=== PATIENT | male | born 1950 | race African-American/Black ===

== ENCOUNTER 2016-11-12 10:34 | Emergency (ER) | payer OTHER ==
[~2016-11-12] VITALS: Ht 172.7 cm; Wt 81.0 kg
[~2016-11-12 10:34] MED LIST: ATORVASTATIN CA40 MG PO; CEPHALEXIN500 MG PO; CLONIDINE0.1 MG PO; COLCHICINE0.6 M2 PO; LISINOPRIL20 MG PO; LORTAB 10-325 M1 TAB PO; LORTAB 7.57.5 MG PO; MOTRIN800 MG PO; NAPROSYN500 MG PO; PERCOCET 5/325M1 TAB PO; ULTRAM50 M1 PO
[2016-11-12] MEDS ORDERED: CARVEDILOL25 MG PO (10:43)
[2016-11-12] MEDS ORDERED: BRILINTA90 MG PO (10:45)
[2016-11-12 11:30] LABS: HEMATOCRIT 30.2 % (39.0-50.0); HEMOGLOBIN 9.3 g/dl (14.0-18.0); MEAN CELL VOLUME 100.3 fL CALC (80.0-100.0); MEAN CORPUSCULAR HGB 30.9 pG CALC (26.0-32.0); MEAN CORPUSCULAR HGB CONC 30.8 g/L CALC (32.0-36.0); NEUT# 3.58 thou/uL (1.82-7.42); RED BLOOD COUNT 3.01 mill/uL (4.70-6.10); RED CELL DISTRI WIDTH 13.3 % (11.5-15.5)
[2016-11-12 11:44] LABS: ALBUMIN 4.2 g/dL (3.2-5.0); ALKALINE PHOSPHATASE 72 u/l (38-126); ANION GAP 14 (6-22 (CALC)); BILIRUBIN, TOTAL 0.4 mg/dL (0.0-1.4); BUN 28 mg/dL (8-23); BUN/CREATININE RATIO 22 (12-20 (CALC)); CALCIUM 9.9 mg/dL (8.4-10.2); CARBON DIOXIDE 27 mmol/l (22-30); CHLORIDE 104 mmol/l (95-108); CREATININE 1.3 mg/dL (0.7-1.3); GFR 56 ML/MIN (>=60 (CALC)); GFR FOR AFR.AMER. > 60 ML/MIN (>=60 (CALC)); GLUCOSE 111 mg/dL (82-115); SGOT/AST 34 u/l (19-48); SGPT/ALT 44 u/l (11-66); SODIUM 140 mmol/l (137-146); TOTAL PROTEIN 7.8 g/dL (6.3-8.2)
[2016-11-12 11:45] LABS: POTASSIUM 5.4 mmol/l (3.5-5.1)
[2016-11-12] MEDS ORDERED: INDOCIN25 MG PO (12:08)
[2016-11-12] MEDS ORDERED: PERCOCET 5/325M1 TAB PO (12:08)
[2016-11-12 12:15] VITALS: BP 129/74
== END 2016-11-12 12:15 | disposition home or self-care (01) | DRG 554 ==
LOC: ED 10:34
PROVIDERS: Emergency Medicine
DX: M10.071 Idiopathic gout, right ankle and foot (principal); M25.571 Pain in right ankle and joints of right foot

== ENCOUNTER 2016-11-27 10:01 | Emergency (ER) | payer OTHER ==
[~2016-11-27] VITALS: Ht 172.7 cm; Wt 85.0 kg
[~2016-11-27 10:01] MED LIST changes: +BRILINTA90 MG PO; +CARVEDILOL25 MG PO; +INDOCIN25 MG PO
[2016-11-27] MEDS ORDERED: LASIX 20 MG TAB20 MG PO (10:12)
[2016-11-27] MEDS ORDERED: ULTRAM50 M1 PO (12:40)
[2016-11-27 12:54] VITALS: BP 132/78
== END 2016-11-27 12:54 | disposition home or self-care (01) | DRG 554 ==
LOC: ED 10:01
DX: M17.11 Unilateral primary osteoarthritis, right knee (principal); I10 Essential (primary) hypertension; M76.9 Unspecified enthesopathy, lower limb, excluding foot; I25.2 Old myocardial infarction; M10.9 Gout, unspecified; Z95.810 Presence of automatic (implantable) cardiac defibrillator

== ENCOUNTER 2017-03-23 18:05 | Emergency (ER) | payer OTHER ==
[~2017-03-23] VITALS: Ht 172.7 cm; Wt 83.0 kg
[~2017-03-23 18:05] MED LIST changes: +LASIX 20 MG TAB20 MG PO
[2017-03-23] MEDS ORDERED: PERCOCET 5/325M1 TAB PO (20:18)
[2017-03-23] MEDS ORDERED: ORPHENADRINE C100 M1 PO (20:18)
[2017-03-23 20:50] VITALS: BP 147/70
== END 2017-03-23 20:49 | disposition home or self-care (01) | DRG 552 ==
LOC: ED 18:05
DX: S16.1XXA Strain of muscle, fascia and tendon at neck level, initial encounter (principal); I10 Essential (primary) hypertension; M47.812 Spondylosis without myelopathy or radiculopathy, cervical region; I25.2 Old myocardial infarction; M10.9 Gout, unspecified; V43.52XA Car driver injured in collision with other type car in traffic accident, initial encounter

== ENCOUNTER 2017-07-08 07:00 | Emergency (ER) | payer OTHER ==
[~2017-07-08] VITALS: Ht 172.7 cm; Wt 100.0 kg
[~2017-07-08 07:00] MED LIST changes: +ORPHENADRINE C100 M1 PO
[2017-07-08] MEDS ORDERED: BACTRIM DS1 TAB PO (08:43)
[2017-07-08 09:17] LABS: HEMATOCRIT 30.1 % (39.0-50.0); HEMOGLOBIN 9.3 g/dl (14.0-18.0); IMMATURE GRANULOCYTES 0.3 % (0.0-1.0); MEAN CORPUSCULAR HGB 30.9 pG CALC (26.0-32.0); MEAN CORPUSCULAR HGB CONC 30.9 g/L CALC (32.0-36.0); NEUT# 4.83 thou/uL (1.82-7.42); RED BLOOD COUNT 3.01 mill/uL (4.70-6.10)
[2017-07-08] MEDS ORDERED: NORCO1 TA1 PO (09:22)
[2017-07-08 09:24] VITALS: BP 141/75
[2017-07-08 09:32] LABS: ALBUMIN 4.5 g/dL (3.2-5.0); BILIRUBIN, TOTAL 0.3 mg/dL (0.0-1.4); CALCIUM 9.8 mg/dL (8.4-10.2); CREATININE 1.6 mg/dL (0.7-1.3); POTASSIUM 5.2 mmol/l (3.5-5.1); TOTAL PROTEIN 7.5 g/dL (6.3-8.2)
== END 2017-07-08 09:30 | disposition home or self-care (01) | DRG 561 ==
LOC: ED 07:00
PROVIDERS: Emergency Medicine
DX: T84.53XA Infection and inflammatory reaction due to internal right knee prosthesis, initial encounter (principal); B96.5 Pseudomonas (aeruginosa) (mallei) (pseudomallei) as the cause of diseases classified elsewhere; M25.561 Pain in right knee; M25.461 Effusion, right knee; Z91.19 Patient's noncompliance with other medical treatment and regimen
CPT/HCPCS: J1335

== ENCOUNTER 2019-05-04 09:25 | Emergency (ER) | payer MEDICARE ==
[~2019-05-04] VITALS: Ht 172.7 cm; Wt 75.0 kg
[~2019-05-04 09:25] MED LIST changes: +ALLOPURINOL300 MG PO; +ASPIRIN81 MG PO; +BACTRIM DS1 TAB PO; +FLEXERIL PO; +MELOXICAM15 MG PO; +NORCO1 TA1 PO
[2019-05-04 10:05] LABS: HEMATOCRIT 39.5 % (39.0-50.0); HEMOGLOBIN 12.3 g/dl (14.0-18.0); IMMATURE GRANULOCYTES 0.9 % (0.0-5.0); MEAN CELL VOLUME 96.6 fL CALC (80.0-100.0); MEAN CORPUSCULAR HGB 30.1 pG CALC (26.0-32.0); MEAN CORPUSCULAR HGB CONC 31.1 g/L CALC (32.0-36.0); NEUT# 4.59 thou/uL (1.82-7.42); RED BLOOD COUNT 4.09 mill/uL (4.70-6.10); RED CELL DISTRI WIDTH 14.2 % (11.5-15.5)
[2019-05-04 10:21] LABS: ALBUMIN 4.4 g/dL (3.2-5.0); CREATININE 2.2 mg/dL (0.7-1.3); POTASSIUM 4.3 mmol/l (3.5-5.1); TOTAL PROTEIN 7.9 g/dL (6.3-8.2)
[2019-05-04 10:22] LABS: BILIRUBIN, TOTAL 0.8 mg/dL (0.0-1.4)
[2019-05-04] MEDS ORDERED: COLCHICINE0.6 M2 PO (10:43)
[2019-05-04 10:49] VITALS: BP 154/77
[2019-05-04] MEDS ORDERED: ULTRAM50 M1 PO (10:55)
== END 2019-05-04 11:02 | disposition left against medical advice (07) ==
LOC: ED 09:25
PROVIDERS: Emergency Medicine
DX: M10.072 Idiopathic gout, left ankle and foot (principal); N28.9 Disorder of kidney and ureter, unspecified; I10 Essential (primary) hypertension; Z91.19 Patient's noncompliance with other medical treatment and regimen

== ENCOUNTER 2019-05-23 19:28 | Emergency (ER) | payer OTHER, MEDICARE, MEDICAID ==
[~2019-05-23] VITALS: Ht 172.7 cm; Wt 78.0 kg
[2019-05-23 19:57] LABS: IMMATURE GRANULOCYTES 0.7 % (0.0-5.0); MEAN CELL VOLUME 97.6 fL CALC (80.0-100.0); MEAN CORPUSCULAR HGB 30.5 pG CALC (26.0-32.0); MEAN CORPUSCULAR HGB CONC 31.3 g/L CALC (32.0-36.0); NEUT# 7.02 thou/uL (1.82-7.42); RED BLOOD COUNT 3.31 mill/uL (4.70-6.10); RED CELL DISTRI WIDTH 15.6 % (11.5-15.5)
[2019-05-23 20:18] LABS: URINE BILIRUBIN - DIPSTICK NEGATIVE (NEGATIVE); URINE BLOOD DIPSTICK NEGATIVE (NEGATIVE); URINE COLOR YELLOW; URINE GLUCOSE - DIPSTICK NEGATIVE (NEGATIVE); URINE KETONE NEGATIVE (NEGATIVE); URINE LEUK ESTERASE NEGATIVE (Negative); URINE NITRITE - DIPSTICK NEGATIVE (Negative); URINE PROTEIN - DIPSTICK NEGATIVE (NEG-TRACE); URINE SPECIFIC GRAVITY 1.025; URINE UROBILINOGEN - DIPSTICK 0.2 E.U./dL (0.2)
[2019-05-23 20:27] LABS: URINE CLARITY SL CLOUDY
[2019-05-23 20:37] LABS: HEMATOCRIT 32.3 % (39.0-50.0); HEMOGLOBIN 10.1 g/dl (14.0-18.0)
[2019-05-23 21:15] LABS: ALBUMIN 4.3 g/dL (3.2-5.0); BILIRUBIN, TOTAL 0.6 mg/dL (0.0-1.4); CREATININE 2.3 mg/dL (0.7-1.3); TOTAL PROTEIN 7.9 g/dL (6.3-8.2)
[2019-05-23 21:24] LABS: POTASSIUM 4.8 mmol/l (3.5-5.1)
[2019-05-23] MEDS ORDERED: TRAMADOL HCL50 MG PO (21:53)
[2019-05-23 21:55] VITALS: BP 139/88
== END 2019-05-23 21:55 | disposition home or self-care (01) | DRG 552 ==
LOC: ED 19:28
PROVIDERS: Family Medicine
DX: S16.1XXA Strain of muscle, fascia and tendon at neck level, initial encounter (principal); S80.01XA Contusion of right knee, initial encounter; S50.02XA Contusion of left elbow, initial encounter; V43.52XA Car driver injured in collision with other type car in traffic accident, initial encounter; S09.90XA Unspecified injury of head, initial encounter

== ENCOUNTER 2020-07-04 13:41 | Inpatient (IN) | payer MEDICARE, MEDICAID ==
[2020-07-04] VITALS (7 sets, daily range): BP systolic 110–127; BP diastolic 74–90
[~2020-07-04] VITALS: Ht 172.7 cm; Wt 69.0 kg
[~2020-07-04 13:41] MED LIST changes: +TRAMADOL HCL50 MG PO
--- NOTE | 2020-07-04 13:41 | NUR ---
PATIENT TO ROOM VIA EMS AND PHYSICIAN AT BEDSIDE FOR EVAL
--- NOTE | 2020-07-04 14:00 | NUR ---
IN ROOM WITH PT. ONLY RESPONSIVE TO PAINFUL STIMULI. PER EMS REPORT PT FOUND ON IN ROOM UNRESPONSIVE BY NEPHEW AND WAS NOT AROUSEABLE AND CALL 911. PT PRESENTED TO ED UNRESPONSIVE WITH PATENT AIRWAY. # 20 IV SITE TO RIGHT HAND BY EMS IN PLACE. ACCUCHECK OBTAINED BEDSIDE AND NOTED TO BE CRITICAL CIARAN--DR SANCHEZ IN FORMED.
--- NOTE | 2020-07-04 14:30 | NUR ---
MEDICATION RECONCILIATION UNABLE TO OBTAIN D/T PT INABILITY TO REPORT HOME MEDICAITONS.
[2020-07-04 14:35] LABS: IMMATURE GRANULOCYTES 0.4 % (0.0-5.0); MEAN CELL VOLUME 101.9 fL CALC (80.0-100.0); MEAN CORPUSCULAR HGB 31.9 pG CALC (26.0-32.0); MEAN CORPUSCULAR HGB CONC 31.3 g/dL CAL (32.0-36.0); NEUT# 9.76 thou/uL (1.82-7.42); RED BLOOD COUNT 5.68 mill/uL (4.70-6.10)
[2020-07-04 14:39] LABS: HEMATOCRIT 57.9 % (39.0-50.0); HEMOGLOBIN 18.1 g/dl (14.0-18.0)
[2020-07-04 14:51] LABS: ALBUMIN 4.9 g/dL (3.2-5.0)
[2020-07-04 14:53] LABS: POTASSIUM 4.2 mmol/l (3.5-5.1)
--- NOTE | 2020-07-04 15:15 | NUR ---
REPEAT ACCUCHECK OBTAINED NOTED TO BE CRITICAL HIGH. DR SANCHEZ NOTIFIED AND ORDER RECEIVED FOR ADDITIONAL 12 UNITS OF REGULAR INSULIN
--- NOTE | 2020-07-04 15:49 | NUR ---
IN ROOM WITH JOHN TEAGUE AND DR SANCHEZ. ORDER FOR CARDIZEM 10 MG IVP TO BE GIVEN. PT REMAINS ONLY RESPONSIVE TO PAINFUL STIMULI.
[2020-07-04 15:51] LABS: BILIRUBIN, TOTAL 1.2 mg/dL (0.0-1.4); CREATININE 3.5 mg/dL (0.7-1.3)
--- NOTE | 2020-07-04 15:55 | NUR ---
SECOND DOSE OF 12 UNITS OF REGULAR INSULIN ADMINISTERED.
--- NOTE | 2020-07-04 16:00 | NUR ---
BEDSIDE WITH DR SANCHEZ FOR CENTRAL LINE PLACEMENT TO RIGHT SUBCLAVIAN AREA.
--- NOTE | 2020-07-04 16:02 | NUR ---
PORT XRAY COMPELTED BEDSIDE FOR CENTRAL LINE PLACEMENT.
--- NOTE | 2020-07-04 16:05 | NUR ---
200CC OF YELLOW URINE EMPTIED FROM URINAL.
[2020-07-04 16:34] LABS: URINE BILIRUBIN - DIPSTICK NEGATIVE (NEGATIVE); URINE BLOOD DIPSTICK MODERATE (NEGATIVE); URINE COLOR YELLOW; URINE GLUCOSE - DIPSTICK >=1000 mg/dL (NEGATIVE); URINE KETONE NEGATIVE (NEGATIVE); URINE LEUK ESTERASE NEGATIVE (NEGATIVE); URINE NITRITE - DIPSTICK NEGATIVE (Negative); URINE PROTEIN - DIPSTICK NEGATIVE (NEG-TRACE); URINE SPECIFIC GRAVITY 1.025; URINE UROBILINOGEN - DIPSTICK 0.2 E.U./dL (0.2)
[2020-07-04 16:41] LABS: URINE WBC 0-2 WBC/hpf (0-5)
--- NOTE | 2020-07-04 16:48 | NUR ---
IV SITE TO RIGHT AC NOTED TO BE INFILTRATED WITH SWELLING. WARM PACKS AND BLANKETS PLACED.
--- NOTE | 2020-07-04 17:24 | NUR ---
RETURN FROM CT WITH PT. PLACED ON CARDIAC MONTIIOR. PT REPSONDS TO VERBAL AND PAINFUL STIMULI. PT REMAINS IN AFIB WITH RVT RATE 130-140S DR SANCHEZ NOTIFIED AND ORDER RECEIVED FROM ADDITIONAL 10 MG OF CARDIZEM
--- NOTE | 2020-07-04 17:40 | NUR ---
ADDITIONAL DOSE OF CARDIZEM 10 MG IVP GIVEN TO PT PER DR SANCHEZ ORDER. HR CONTINUES 130-140S
--- NOTE | 2020-07-04 18:00 | NUR ---
200 CC OF YELLOW URINE EMPTIED FROM URINAL--PT ABLE TO USE ON OWN.
--- NOTE | 2020-07-04 18:10 | NUR ---
INSULIN GTT INITIATED PER DR SANCHEZ ORDER. INFUSING TO RIGHT SUBCLAVIAN CENTRAL LINE. PT TOLERATING ADMINISTRATION. ELECTRIC BRAIN WAVE EQUIPMENT MECHANIC IN PLACE.
--- NOTE | 2020-07-04 18:15 | NUR ---
SPOKE WITH MARIO COPEING AND UPDATED ON PT STATUS.
--- NOTE | 2020-07-04 18:30 | NUR ---
REPORT GIVEN TO GUSTABO TEAGUE IN ICU.
--- NOTE | 2020-07-04 18:36 | NUR ---
report received from Ellen Newman RN
--- NOTE | 2020-07-04 18:45 | NUR ---
Admission Note Report Given to: GUSTABO RN Transported by: Wheelchair Stretcher Transported with: X Nurse Transporter X Patent IV O2 X Student Accounts Manager Location: X ICU MS2 PT TRANSPORTED TO ICU BED 5 VIA STRETCHER WITH MONITOR IN PLACE TO ICU BED 5 IN STABLE CONDIITON. ARAVIND COTTON AND ALONSO TEAGUE BEDSIDE WITH PT.
--- NOTE | 2020-07-04 19:00 | NUR ---
69 yr old black male admitted icu5 per stretcher from er. transferred x2 to bed. bed weight not working. pt drowsy & poorly responsive. yelled out when moved from stretcher to bed. o2 began @ 2l/m. electronic device monitor shows a fib/flutter pvcs hr 130. unable to obtain history from pt. history obtained per er record & old chart. oriented to room. fall & air/contact precautions & bed alarm initiated.
--- NOTE | 2020-07-04 19:05 | NUR ---
Dr Flores called at [phone]; no answer; message left in regards to consultation;
[2020-07-04 19:30] LABS: CREATININE 2.6 mg/dL (0.7-1.3)
--- NOTE | 2020-07-04 19:30 | NUR ---
dr jimenez called this parts data writer. updated on pts condition.
--- NOTE | 2020-07-04 19:45 | NUR ---
#16 fr ding inserted with immediate return of yellow urine.
--- NOTE | 2020-07-04 20:00 | NUR ---
updated dr ramirez of pts condition.
--- NOTE | 2020-07-04 20:20 | NUR ---
transferred pt to new bed. bed weight obtained. to ct per bed. spencer well.
--- NOTE | 2020-07-04 21:30 | NUR ---
pt frequently pulling @ chairman president and chief executive officer & catheter. attempted to reorient without success.
--- NOTE | 2020-07-04 21:52 | NUR ---
mari @ 1911, 2026 & 2151 read hi.
--- NOTE | 2020-07-04 22:30 | NUR ---
cont to carmela pull @ catheter & ekg monitor tech. urine is now bloody. bilat soft wrist restraints applied.
--- NOTE | 2020-07-04 23:00 | NUR ---
updated jeff() about pts condition.
[2020-07-05] VITALS (23 sets, daily range): BP systolic 91–168; BP diastolic 52–84
--- NOTE | 2020-07-05 00:01 | NUR ---
eyes closed. will occasionally arouse somewhat but doesn't know where he is. front desk monitor shows a flutter pvcs hr 146.
--- NOTE | 2020-07-05 02:00 | NUR ---
resting quietly. ding draining dk red urine. engine monitor shows a flutter pvcs hr 144.
--- NOTE | 2020-07-05 05:00 | NUR ---
blood drawn & sent to lab.
[2020-07-05 05:21] LABS: HEMATOCRIT 53.7 % (39.0-50.0); HEMOGLOBIN 17.1 g/dl (14.0-18.0); IMMATURE GRANULOCYTES 0.6 % (0.0-5.0); MEAN CELL VOLUME 100.6 fL CALC (80.0-100.0); MEAN CORPUSCULAR HGB CONC 31.8 g/dL CAL (32.0-36.0); NEUT# 18.1 thou/uL (1.82-7.42); RED BLOOD COUNT 5.34 mill/uL (4.70-6.10); RED CELL DISTRI WIDTH 12.8 % (11.5-15.5)
[2020-07-05 06:17] LABS: ALBUMIN 4.2 g/dL (3.2-5.0); BILIRUBIN, TOTAL 0.9 mg/dL (0.0-1.4); CREATININE 2.2 mg/dL (0.7-1.3); POTASSIUM 3.1 mmol/l (3.5-5.1); TOTAL PROTEIN 7.9 g/dL (6.3-8.2)
[2020-07-05] MEDS ORDERED: CLONIDINE0.1 MG PO (07:30)
[2020-07-05] MEDS ORDERED: LASIX 40 MG TAB40 MG PO (07:30)
[2020-07-05] MEDS ORDERED: CARVEDILOL25 MG PO (07:31)
--- NOTE | 2020-07-05 07:49 | NUR ---
PT note Patient is screened for PT intervention and would benefit from consult if medical agrees
--- NOTE | 2020-07-05 09:00 | NUR ---
PT SEEN AT REST IN THE BED, DROWSY BUT AROUSES TO VERBAL STIMULI. LUNGS CLEAR, 2 LPM NC. DECREASED PEDAL PULSES. SKIN LESIONS IN PATCHES. HEPARIN DRIP INFUSING, ALSO 0.45NS AT 125 ML/HR. CARDIZEM DRIP HAS BEEN STARTED PER DR PLATA ORDER AT 5 MG/HR. INSULIN DRIP WAS DISCONTINUED PER BS 95. NO ACUTE DISTRESS NOTED, NO PULLING AT LINES AT THIS TIME. BILATERAL WRIST RESTRAINTS REMAIN IN PLACE.
--- NOTE | 2020-07-05 11:59 | NUR ---
PT REMAINS RESPONSIVE WITH VOICE STIMULUS, APPROPRIATE WITH ANSWERS. HEPARIN DRIP TO CONTINUE AT 800 UNITS HOURLY. CARDIZEM UP TO 15 MG/HR, TO MONITOR BLOOD PRESSURE CLOSELY. HR WAS 120s EARLIER, BACK UP TO 140 NOW.
--- NOTE | 2020-07-05 15:58 | NUR ---
WRIST RESTRAINTS OFF PER PT UNDERSTANDING NEED TO STOP PULLING TUBES. PT CONTINUES WITH CARDIZEM DRIP AT 15 MG/HR, HR NOW 72 WITH OCCASIONAL PVCs.
--- NOTE | 2020-07-05 18:05 | NUR ---
PT OOB ON COMMODE, SOMEHOW DISLODGED TLC FROM RIGHT CHEST. DR PLATA WAS MADE AWARE BY TEXT, NO RESPONSE YET. PT EATING MEAL, NO DISTRESS. HR 92.
--- NOTE | 2020-07-05 19:18 | NUR ---
CALLED AND SPOKETO DR AWLLACE REGARDING AN ORDER HE PLACED, DEXTROSE 5% AT 75 ML/HR. PATIENT'S LAST SUGAR 425 MG/DL. DR WALLACE ORDERED TO PLACE PATIENT ON /2 NS AT 75 ML/HR. ORDER WILL BE SENT TO [facility].
--- NOTE | 2020-07-05 19:40 | NUR ---
DR PARMAR IN ROOM READY TO PLACE CENTRAL LINE. PATIENT IS SLEEPING. DOES NOT STAY AWAKE. PLACED NEW O2 PULSE OXIMETER SINCE OLD ONE WAS READING POORLT, O2 SAT 100% ON 2 L/MIN NC. PATIENT NOT FOLLOWING DIRECTIONS, DR PARMAR DECIDED TO PLACE ON RIGHT GROIN DUE TO PATIENT MOVES HEAD AROUND AND UNCOOPERATIVE. I ASKED PATIENT TO LIFT HIS ARMS, HE LIFTED THEM, HE ALSO HAS BILATERAL STRONG NETWORKING TECHNICIAN, FINALLY PATIENT STAYED AWAKE AND WAS EXPLAINED PROCEDURE, PATIENT AGREED AND COOPERATED. 2000: DR PARMAR FINISHED WITH PLACING RIGHT GROIN TRIPLE LUMEN CENTRAL LINE, ALL LUMENS RETURN BLOOD AND FLUSH PROPERLY. XRAY WILL BE ORDERED.
--- NOTE | 2020-07-05 20:10 | NUR ---
PATIENT IS DROWSY. DOES FOLLOW DIRECTIONS. NURSE ASSESSMENT PERFORMED. BP 140'S SYSTOLIC, 100% O2 SAT WITH 2 L/MIN NC, HR 101 BPM. PATIENT LAUGHS AT TIMES. CHAMBERS CATHETER INTACT, PATIENT WAS REMINDED HE HAS A CHAMBERS CATHETER, URINE IS DARK-TEA COLORED/SEDIMENT. HOB ELEVATED TO HIGH KHAN'S. THERE IS NO REDNESS OR TENDERNESS, OR ACTIVE BLEEDING ON OLD CENTRAL LINE SITE ON RIGHT CHEST. CALL LIGHT WITHIN REACH. WILL CONTINUE TO MONITOR.
--- NOTE | 2020-07-05 21:55 | NUR ---
VANDANA ABLE TO SWALLOW HIS MEDICATION, TOLERATES INSULIN SC, REQUESTS ICED WATER, PROVIDED, JELLO WAS GIVEN WELL. HE WAS EDUCATED ON HIGH BLOOD SUGARS AND NEEDS TO WATCH WHAT HE EATS FOR HIS DIABETES. PATIENT REQUESTS A URINAL, I REMINDED HIM HE HAS A CATHETER IN PLACE, HE BECAME UPSET AND REPORTS HE WILL PULL IT OUT. WILL CONTINUE TO MONITOR.
--- NOTE | 2020-07-05 23:45 | NUR ---
PATIENT ASSITED BACK TO BED. PATIENT HAD A MEDIUM-HARD FORMED BM, FRESH BLOOD PRESENT IN BM. 1,050 ML OF DARK TEA COLORED URINE EMPTIED. CARDIZEM DRIP TITARTED TO 15 MG/HR DUE TO HEART RATE ELEVATED AT 140'S FROM ACTIVITY. CALL LIGHT WITHIN REACH.
[2020-07-06] VITALS (20 sets, daily range): BP systolic 93–126; BP diastolic 44–73
--- NOTE | 2020-07-06 01:14 | NUR ---
PATIENT RESTS WITH EYES CLOSED. NO ACUTE DISTRESS SHOWN. CALL LIGHT WITHIN REACH.
--- NOTE | 2020-07-06 04:14 | NUR ---
PATIENT AWAKENS WITH VERBAL STIMULI. NO ACUTE DISTRES SSHOWN. NO COMPLAINTS OR NEEDS AT THIS TIME. CALL LIGHT WITHIN REACH.
--- NOTE | 2020-07-06 04:22 | NUR ---
PATIENT YELLS OUT LOUD. I ASKED WHAT HE NEEDED, HE REQUESTED SOMETHING TO EAT AND MORE WATER, POURED WATER INTO HIS CUP AND PROVIDED SONU CRACKERS.
--- NOTE | 2020-07-06 05:41 | NUR ---
BLOOD DRAWN FROM RIGHT FEMORAL TRIPLE LUMEN, PATIENT IS AWAKE. CONVERSATES. POC DISCUSSED FOR TODAY. NO COMPLAINTS OR NEEDS T THIS TIME. CALL LIGHT WITHIN REACH.
[2020-07-06 06:40] LABS: CREATININE 1.8 mg/dL (0.7-1.3); POTASSIUM 3.1 mmol/l (3.5-5.1)
[2020-07-06 07:00] LABS: ALBUMIN 3.2 g/dL (3.2-5.0)
--- NOTE | 2020-07-06 09:21 | NUR ---
PT IS AWAKE, ALERT, ORIENTED X 3. PT SEEN BY DR PLATA, WHO EXPLAINS NEED TO STAY IN HOSPITAL. PT LATER USED BSC, MODERATE BM. TLC TO RIGHT FEMORAL WORKING WELL. CARDIZEM DRIP DISCONTINUED PER ORDER, METOPROLOL IN PLACE.
--- NOTE | 2020-07-06 13:08 | NUR ---
PT AT REST IN THE BED, NO DISTRESS NOTED. PT SEEN BY CELINA FROM DR VALVERDE'S OFFICE.
--- NOTE | 2020-07-06 15:49 | NUR ---
HEPARIN BOLUS PROVIDED AND RATE INCREASED PER SUBTHERAPEUTIC PTT. PT WITH CHAMBERS REMOVED EARLIER HAS VOIDED TWICE SINCE REMOVAL. NO ACUTE DISTRESS NOTED.
--- NOTE | 2020-07-06 17:59 | NUR ---
PT HEART RATE JUMPED UP TO 140. DR PLATA CONTACTED, CARDIZEM DRIP RESTARTED AT 10 MG/HR.
--- NOTE | 2020-07-06 19:30 | NUR ---
SPOUSE CALLED FOR PT UPDATE, PROVIDED.
--- NOTE | 2020-07-06 19:45 | NUR ---
PT AWAKE AND ALERT. REQUESTED SOMETHING FOR PAIN. PT RELATED PAIN FROM HIS HEAD, DOWN L LEG, AND BACK UP RIGHT SIDE. MEDICATED PER SEP.
--- NOTE | 2020-07-06 20:50 | NUR ---
PTT DRAWN FROM Amanda NEWMAN. SENT TO LAB.
--- NOTE | 2020-07-06 22:00 | NUR ---
PT WITH EYES CLOSED, NO DISTRESS NOTED. CALL SMITH IN REACH.
--- NOTE | 2020-07-06 23:16 | NUR ---
HEPARIN GTT STOPPED.
--- NOTE | 2020-07-06 23:25 | NUR ---
PT C/O SINUS PAIN, REQUESTED PAIN MED. MEDICATED PER SEP.
[2020-07-07] VITALS (22 sets, daily range): BP systolic 92–142; BP diastolic 50–75
--- NOTE | 2020-07-07 02:00 | NUR ---
PT WITH EYES CLOSED, NO DISTRESS NOTED. CALL SMITH IN REACH.
--- NOTE | 2020-07-07 04:00 | NUR ---
PT WITH EYES CLOSED, MOANS WHEN ENTERING ROOM. NO RESP DISTRESS NOTED. CALL SMITH IN REACH.
[2020-07-07 05:55] LABS: ALBUMIN 3.1 g/dL (3.2-5.0); CARBON DIOXIDE 37 mmol/l (22-30); CHLORIDE 104 mmol/l (95-108); CREATININE 1.3 mg/dL (0.7-1.3); GFR 55 ML/MIN (>=60 (CALC)); GFR FOR AFR.AMER. > 60 ML/MIN (>=60 (CALC)); POTASSIUM 3.1 mmol/l (3.5-5.1); SODIUM 143 mmol/l (137-146)
--- NOTE | 2020-07-07 06:00 | NUR ---
PT WITH EYES CLOSED, NO DISTRESS NOTED. CALL SMITH IN REACH.
[2020-07-07 06:04] LABS: BUN 48 mg/dL (8-23)
--- NOTE | 2020-07-07 06:15 | NUR ---
LAB GLUCOSE 58, ORANGE JUICE PROVIDED.
--- NOTE | 2020-07-07 06:41 | NUR ---
REPORT TO ROBERTO TEAGUE.
--- NOTE | 2020-07-07 09:19 | NUR ---
PT SEEN AWAKE, DROWSY, ORIENTED X 3. LUNGS CLEAR, 2 LPM NC. PT COMPLAINS OF PAIN TO LEFT GREAT TOE, STATES IT FEELS LIKE GOUT. SKIN PATCHES TO LOW BACK LEFT SIDE AND LEFT BUTTOCK PAINFUL, PROVIDED PAIN MED FOR SAME. DR PLATA IN TO SEE PT, STARTED ANTIVIRAL MED PER CALLING SKIN PATCHES SHINGLES. PT UPDATED ON IMPROVING RENAL FUNCTION. IVF TURNED DOWN TO KVO.
--- NOTE | 2020-07-07 13:00 | NUR ---
PT AT REST IN THE BED, NO DISTRESS. OXYGEN REMOVED PER ACCEPTABLE SATS, CONTINUES AT MID TO UPPER 90s WITHOUT NASAL CANNULA. URINE SPECIMEN COLLECTED PER BURNING UPON VOIDING, SENT TO LAB.
[2020-07-07 13:48] LABS: URINE BILIRUBIN - DIPSTICK NEGATIVE (NEGATIVE); URINE BLOOD DIPSTICK LARGE (NEGATIVE); URINE COLOR YELLOW; URINE GLUCOSE - DIPSTICK >=1000 mg/dL (NEGATIVE); URINE KETONE NEGATIVE (NEGATIVE); URINE LEUK ESTERASE NEGATIVE (NEGATIVE); URINE NITRITE - DIPSTICK NEGATIVE (Negative); URINE PROTEIN - DIPSTICK TRACE mg/dL (NEG-TRACE)
[2020-07-07 14:00] LABS: URINE RBC 50-100 RBC/hpf (0-5)
--- NOTE | 2020-07-07 16:11 | NUR ---
PT PROVIDED BATH AND LINEN CHANGE. PT WAS ABLE TO BATHE HIMSELF WITH MINIMAL ASSIST. PT DID HAVE VT X 11 BEATS THIS AM AND 17 BEAT THIS AFTERNOON, ASYMPTOMATIC, DEFIBRILLATOR DID NOT FIRE. DR BONI TAYLOR.
--- NOTE | 2020-07-07 17:39 | NUR ---
PT WITH BM THIS AFTERNOON. PT ON HIS FEET IN ROOM, SAYS THAT HE IS GETTING WEAK FROM NOT WALKING AROUND. PHYSICAL THERAPY CONSULT PLACED.
--- NOTE | 2020-07-07 19:30 | NUR ---
awake. watching tv. nad. cardiac monitor technician shows a fib pvcs hr 87. rt groin tlc in place. cardizem gtt infusing @ 5cchr, 1/2ns infusing @ 10cchr. po fluids taken well. voids per urinal. fall & droplet precautions cont.
--- NOTE | 2020-07-07 20:50 | NUR ---
awake. watching tv. c/o lt hip to toe pain. rates as "8". does not appear in that much pain. dilaudid 0.5mg ivp given.
--- NOTE | 2020-07-07 22:00 | NUR ---
watching tv. no distress. hospital monitor shows a fib pvcs hr 64.
[2020-07-08] VITALS (15 sets, daily range): BP systolic 103–143; BP diastolic 62–81
--- NOTE | 2020-07-08 00:38 | NUR ---
c/o pain lt hip to toes of "8". does not appear in that much pain. dilaudid 0.5mg ivp given.
--- NOTE | 2020-07-08 02:00 | NUR ---
naps for short intervals. nad.
--- NOTE | 2020-07-08 03:30 | NUR ---
c/o pain from lt hip to toes. does not appear in that much pain. dilaudid 0.5mg ivp given.
--- NOTE | 2020-07-08 05:00 | NUR ---
blood drawn & sent to lab.
[2020-07-08 05:30] LABS: MEAN CORPUSCULAR HGB 31.9 pG CALC (26.0-32.0); MEAN CORPUSCULAR HGB CONC 29.9 g/dL CAL (32.0-36.0); RED BLOOD COUNT 3.6 mill/uL (4.70-6.10); RED CELL DISTRI WIDTH 12.8 % (11.5-15.5)
[2020-07-08 05:33] LABS: HEMATOCRIT 38.4 % (39.0-50.0); HEMOGLOBIN 11.5 g/dl (14.0-18.0); MEAN CELL VOLUME 106.7 fL CALC (80.0-100.0)
[2020-07-08 06:00] LABS: ALBUMIN 3.1 g/dL (3.2-5.0); BUN 40 mg/dL (8-23); CARBON DIOXIDE 32 mmol/l (22-30); CHLORIDE 104 mmol/l (95-108); CREATININE 1.2 mg/dL (0.7-1.3); GFR 60 ML/MIN (>=60 (CALC)); GFR FOR AFR.AMER. > 60 ML/MIN (>=60 (CALC)); MAGNESIUM 2.8 mg/dL (1.6-2.3); SODIUM 139 mmol/l (137-146)
[2020-07-08 06:02] LABS: POTASSIUM 4.8 mmol/l (3.5-5.1)
--- NOTE | 2020-07-08 07:55 | NUR ---
PT IS AWAKE, ALERT, ORIENTED X 3. LUNGS CLEAR, RA. BM YESTERDAY. PT REPORTS IMPROVEMENT IN PAIN TO LEFT GREAT TOE.
--- NOTE | 2020-07-08 13:05 | NUR ---
PT MEDICATED FOR PAIN REQUESTED. CARDIZEM STARTED FOR HR 140, DR WALKER NOTIFIED, CARDIZEM CD 120 MG ORDERED. HR DOWN TO 100, CARDIZEM BACKED OFF TO 5 FROM 10. PT STILL HOPING FOR DISCHARGE LATER TODAY.
--- NOTE | 2020-07-08 15:23 | NUR ---
PT HAS BEEN REMOVED FROM CARDIZEM DRIP PER GIVING CARDIZEM CD 120MG AND HR LOWERING TO 67.
--- NOTE | 2020-07-08 17:36 | NUR ---
DR PLATA TO DISCHARGE PT WITHIN A COUPLE OF HOURS. PT SATISFIED BY THIS, WILL BE HAPPY TO BE HOME FOR [place].
--- NOTE | 2020-07-08 19:20 | NUR ---
PT AWAKE AND ALERT, SITTING ON SIDE OF BED. PT ASKING ABOUT D/C. INFORMED WAITING FOR DOCTORS ORDER.
[2020-07-08] MEDS ORDERED: VALTREX1 GM PO (19:26)
[2020-07-08] MEDS ORDERED: MEDDOSEPAK PO (19:26)
[2020-07-08] MEDS ORDERED: GABAPENTIN100 MG PO (19:26)
[2020-07-08] MEDS ORDERED: CARVEDILOL25 MG PO (19:26)
[2020-07-08] MEDS ORDERED: ALLOPURINOL100 MG PO (19:26)
[2020-07-08] MEDS ORDERED: LEVEMIR100 UNIT/M SC (19:26)
[2020-07-08] MEDS ORDERED: ELIQUIS2.5 MG PO (19:26)
--- NOTE | 2020-07-08 20:30 | NUR ---
INFORMED PT TO TAKE SNACK AT HOME.
--- NOTE | 2020-07-08 20:50 | NUR ---
R FEMORAL TRIPLE LUMEN IV D/C'D. CATH TIP INTACT. PRESSURE HELD FOR 10 MIN. 4X4 PLACED, NO BLEEDING NOTED.
--- NOTE | 2020-07-08 21:05 | NUR ---
PT GOT SELF DRESSED, REVIEWED D/C INSTRUCTIONS. PT VERBALIZED UNDERSTANDING. PRESCRIPTIONS GIVEN TO PT.
--- NOTE | 2020-07-08 21:08 | NUR ---
PT TAKING DOWNSTAIRS VIA W/C. ASSISTED INTO SPOUSE VEHICLE.
== END 2020-07-08 21:08 | disposition home or self-care (01) | DRG 637 ==
LOC: ED 13:41 → ED-I 17:25 → ED 17:59 → ICU 18:00
PROVIDERS: Emergency Medicine; Internal Medicine; Internal Medicine Nephrology; ADMIT Internal Medicine; ATTEND Internal Medicine
PROC: 02HV33Z Insertion of Infusion Device into Superior Vena Cava, Percutaneous Approach (ICD-10-PCS; principal; 2020-07-04)
PROC: 06HM33Z Insertion of Infusion Device into Right Femoral Vein, Percutaneous Approach (ICD-10-PCS; 2020-07-04)
DX: E11.00 Type 2 diabetes mellitus with hyperosmolarity without nonketotic hyperglycemic-hyperosmolar coma (NKHHC) (principal); K85.90 Acute pancreatitis without necrosis or infection, unspecified; N17.9 Acute kidney failure, unspecified; I24.8 Other forms of acute ischemic heart disease; G93.40 Encephalopathy, unspecified; M62.82 Rhabdomyolysis; E87.2 Acidosis; I13.0 Hypertensive heart and chronic kidney disease with heart failure and stage 1 through stage 4 chronic kidney disease, or unspecified chronic kidney disease; E86.0 Dehydration; E83.52 Hypercalcemia; I48.91 Unspecified atrial fibrillation; B02.9 Zoster without complications; M10.9 Gout, unspecified; J10.1 Influenza due to other identified influenza virus with other respiratory manifestations; I25.10 Atherosclerotic heart disease of native coronary artery without angina pectoris; I50.9 Heart failure, unspecified; E11.22 Type 2 diabetes mellitus with diabetic chronic kidney disease; N18.30 Chronic kidney disease, stage 3 unspecified; R31.9 Hematuria, unspecified; Z20.828 Contact with and (suspected) exposure to other viral communicable diseases; Z79.4 Long term (current) use of insulin; Z79.899 Other long term (current) drug therapy; Z95.1 Presence of aortocoronary bypass graft
CPT/HCPCS: J1644; S0164

== ENCOUNTER 2020-07-10 13:19 | Emergency (ER) | payer OTHER, MEDICARE, MEDICAID ==
[~2020-07-10] VITALS: Ht 172.7 cm; Wt 59.0 kg
[~2020-07-10 13:19] MED LIST changes: +ALLOPURINOL100 MG PO; +ELIQUIS2.5 MG PO; +GABAPENTIN100 MG PO; +LASIX 40 MG TAB40 MG PO; +LEVEMIR100 UNIT/M SC; +MEDDOSEPAK PO; +VALTREX1 GM PO
[2020-07-10 14:31] LABS: HEMATOCRIT 37.3 % (39.0-50.0); HEMOGLOBIN 11.3 g/dl (14.0-18.0); IMMATURE GRANULOCYTES 2.3 % (0.0-5.0); MEAN CELL VOLUME 107.8 fL CALC (80.0-100.0); MEAN CORPUSCULAR HGB 32.7 pG CALC (26.0-32.0); MEAN CORPUSCULAR HGB CONC 30.3 g/dL CAL (32.0-36.0); NEUT# 13.21 thou/uL (1.82-7.42); RED BLOOD COUNT 3.46 mill/uL (4.70-6.10); RED CELL DISTRI WIDTH 14.3 % (11.5-15.5)
[2020-07-10 14:50] LABS: ALBUMIN 3.6 g/dL (3.2-5.0); TOTAL PROTEIN 6.5 g/dL (6.3-8.2)
[2020-07-10 15:14] LABS: ACT PARTIAL THROMBO TIME 24.8 SECONDS (20.0-32.5); INTERNATIONAL NORMALIZED RATIO 1.2 RATIO (0.7-1.3); PROTHROMBIN TIME 11.6 SECONDS (9.0-12.5)
[2020-07-10 15:30] VITALS: BP 119/80
[2020-07-10 15:50] LABS: BILIRUBIN, TOTAL 0.4 mg/dL (0.0-1.4); CREATININE 2.1 mg/dL (0.7-1.3); POTASSIUM 7.6 mmol/l (3.5-5.1)
== END 2020-07-10 15:30 | disposition short-term general hospital (02) | DRG 999 ==
LOC: ED 13:19
PROVIDERS: Student in an Organized Health Care Education/Training Program
DX: I21.3 ST elevation (STEMI) myocardial infarction of unspecified site (principal); E11.00 Type 2 diabetes mellitus with hyperosmolarity without nonketotic hyperglycemic-hyperosmolar coma (NKHHC); E11.65 Type 2 diabetes mellitus with hyperglycemia; E87.5 Hyperkalemia; I11.0 Hypertensive heart disease with heart failure; I50.9 Heart failure, unspecified; I25.2 Old myocardial infarction; T38.3X6A Underdosing of insulin and oral hypoglycemic [antidiabetic] drugs, initial encounter; Z91.128 Patient's intentional underdosing of medication regimen for other reason; Z95.1 Presence of aortocoronary bypass graft; Z79.4 Long term (current) use of insulin; Z95.5 Presence of coronary angioplasty implant and graft